=== PATIENT | male | born 1970 | race Caucasian/White ===

== ENCOUNTER 2019-11-29 07:22 | Emergency (ER) | payer OTHER ==
[2019-11-29] MEDS ORDERED: Silver Nitrate/Potassium Nitr* 1 PAK (1 PAK PER PATIENT) TOPICAL ONE (08:08)
[2019-11-29] MEDS ORDERED: Oxymetazoline 0.05% NASAL SPR* 15 ML BTL ONE (08:12)
--- NOTE | 2019-11-29 08:24 | UC ---
Epistaxis Nasal HPI - HPI Summary HPI Summary: onset of epistaxis yesterday morning. He awoke in the night with severe epistaxis, and presented today with persistent brisk bleeding. Not an anti- coagulants. No chest pain. Began with a sneeze yesterday. - History of Current Complaint Chief Complaint: UCWounds Stated Complaint: PERSISTENT NOSE BLEED Time Seen by Provider: 11/29/19 08:07 Hx Obtained From: Patient Onset/Duration: Sudden Onset, Lasting Hours Timing: Constant - for the past 45 minutes Severity Initially: Moderate Severity Currently: Severe Pain Intensity: 0 Aggravating Factor(s): Nothing Alleviating Factor(s): Pressure Associated Signs And Symptoms: Positive: Negative - Allergies/Home Medications Allergies/Adverse Reactions: Allergies Allergy/AdvReac Type Severity Reaction Status Date / Time No Known Allergies Allergy Verified 11/29/19 07:30 Home Medications: Home Medications Multivitamin with Iron [One Daily with Iron] 1 tab PO DAILY 11/29/19 [History Confirmed 11/29/19] [place]-3/Dha/Epa/Fish Oil [Fish Oil 1,000 mg Softgel] 1,000 mg PO DAILY 11/29/19 [History Confirmed 11/29/19] Omeprazole 20 mg PO DAILY 11/29/19 [History Confirmed 11/29/19] PMH/Surg Hx/FS Hx/Imm Hx Previously Healthy: Yes - Surgical History Surgical History: Yes Surgery Procedure, Year, and Place: 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 - Family History Known Family History: Positive: Non-Contributory - Social History Lives: With Family Alcohol Use: Occasionally Substance Use Type: None Smoking Status (MU): Heavy Every Day Tobacco Smoker Type: Cigarettes Have You Smoked in the Last Year: Yes Household Exposure Type: Cigarettes Review of Systems All Other Systems Reviewed And Are Negative: Yes Constitutional: Positive: Negative Skin: Positive: Negative ENT: Positive: Epistaxis Respiratory: Positive: Negative Motor: Positive: Negative Neurovascular: Positive: Negative Musculoskeletal: Positive: Negative Neurological/Mental Status: Positive: Negative. Negative: Headache Psychological: Positive: Negative Is Patient Immunocompromised?: No Physical Exam Triage Information Reviewed: Yes Appearance: Well-Appearing, No Pain Distress Vital Signs: Initial Vital Signs Temp 98.1 F 11/29/19 07:32 Pulse 82 11/29/19 07:32 Resp 16 11/29/19 07:32 BP 138/95 11/29/19 07:32 Pulse Ox 98 11/29/19 07:32 Eyes: Positive: Conjunctiva Clear ENT: Positive: Other - brisk bleeding from left nares, constant from 8:10 after stopping with initial pressure Dental Exam: Normal Respiratory: Positive: Lungs clear Cardiovascular: Positive: RRR Neurological Exam: Normal Psychological Exam: Normal Skin Exam: Normal Epistaxis Nasal Course/Dx - Course Course Of Treatment: Afrin used followed by nasal packing with continued brisk flow of blood from left narea. Decision made to transfer to ER for definitive treatment. - Differential Dx/Diagnosis Differential Diagnosis/HQI/PQRI: Coagulopathy, Hypertension Provider Diagnosis: Epistaxis not due to trauma - Physician Notifications Discussed Patient Care With: Dr Smith Time Discussed With Above Provider: 08:20 Discharge ED - Sign-Out/Discharge Documenting (check all that apply): Patient Departure All imaging exams completed and their final reports reviewed: No Studies - Discharge Plan Condition: Stable Disposition: TRANS HIGHER LVL OF CARE FAC Referrals: No Primary Care Phys,NOPCP [Primary Care Provider] - - Billing Disposition and Condition Condition: STABLE Disposition: Trans Higher Lvl of Care Fac
[2019-11-29 08:41] VITALS: BP 133/74
[2019-11-29] MEDS ORDERED: Oxymetazoline 0.05% NASAL SPR* 15 ML BTL LEFT NARE SCH (09:00)
== END 2019-11-29 08:48 | disposition short-term general hospital (02) ==
LOC: UCCORT 07:22
DX: R04.0 Epistaxis (principal); F17.210 Nicotine dependence, cigarettes, uncomplicated
CPT/HCPCS: 99203; A9270-GY; G0463